=== PATIENT | male | born 1985 | race Asian ===

== ENCOUNTER 2021-04-23 05:15 | Emergency (ER) | payer OTHER ==
[~2021-04-23] VITALS: Ht 172.7 cm; Wt 72.6 kg
[2021-04-23 05:23] VITALS: BP 118/64
--- NOTE | 2021-04-23 05:23 | NUR ---
Place to chair B with [facility]/
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
--- NOTE | 2021-04-23 06:06 | NUR ---
Dr. Jennings at chair to exam patient.
[2021-04-23] MEDS ORDERED: BACITRACIN OINT 500 UNITS/GM PKT TP ONE (06:10)
[2021-04-23 06:29] VITALS: BP 118/64
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
== END 2021-04-23 06:29 ==
LOC: MED 05:15
DX: S50.812A Abrasion of left forearm, initial encounter (principal); S50.811A Abrasion of right forearm, initial encounter; Z02.89 Encounter for other administrative examinations; V49.9XXA Car occupant (driver) (passenger) injured in unspecified traffic accident, initial encounter; Y93.89 Activity, other specified; Y92.89 Other specified places as the place of occurrence of the external cause; Y99.8 Other external cause status
CPT/HCPCS: 99283